=== PATIENT | male | born 1960 | race African-American/Black ===

== ENCOUNTER 2019-06-03 07:13 | Observation (INO) | payer MEDICARE ==
[2019-06-01 10:20] LABS: INR 0.9; PROTHROMBIN TIME 12.6 seconds (11.9-14.5)
[2019-06-01 10:21] LABS: PARTIAL THROMBOPLASTIN TIME 28.9 seconds (23.8-35.5)
[2019-06-01 10:25] LABS: ANION GAP 16.6 mmol/L (8-16); BLOOD UREA NITROGEN 14 mg/dL (7-26); BUN/CREATININE RATIO 13 (6-25); CALCIUM 9.5 mg/dL (8.4-10.2); CARBON DIOXIDE 25 mmol/L (22-29); CHLORIDE 103 mmol/L (98-107); CREATININE, SERUM 1.06 mg/dL (0.72-1.25); EST GLOMERULAR FILTRATION RATE > 60 ML/MIN (60-); GLUCOSE 94 mg/dL (74-118); POTASSIUM 3.6 mmol/L (3.5-5.1); SODIUM 141 mmol/L (136-145)
--- NOTE | 2019-06-01 10:28 | Diagnostic Imaging Report ---
EXAMINATION: CHEST 2 VIEWS INDICATION: Pre-operative COMPARISON: None FINDINGS: LINES/TUBES:None LUNGS:The lungs are well-inflated. No focal consolidation or pulmonary edema. Calcified granuloma at the right lower lung zone. PLEURA:No pleural effusion or pneumothorax. MEDIASTINUM:The cardiomediastinal silhouette appears normal in size and shape. BONES/SOFT TISSUES:No acute osseous injury. ABDOMEN:No free air under the diaphragm. IMPRESSION: No focal pneumonia or pulmonary edema. Signed by: Stephen Quintana MD on 06/01/2019 10:25 AM
[2019-06-01 11:05] LABS: BASOPHILS # (AUTO) 0.1 (0.0-0.1); BASOPHILS % 1.1 % (0.0-1.0); EOSINOPHILS # (AUTO) 0.2 (0.0-0.4); EOSINOPHILS % 3.5 % (0.0-6.0); HEMATOCRIT 41.7 % (38.2-49.6); LYMPHOCYTES # (AUTO) 1.8 (1.0-3.2); MEAN CORPUSCULAR HEMOGLOBIN 29.4 pg (28-32); MEAN CORPUSCULAR VOLUME 81.8 fL (81-99); MONOCYTES # (AUTO) 0.4 (0.2-0.8); MONOCYTES % 7.1 % (4.4-11.3); NEUTROPHILS # (AUTO) 3.1 (2.1-6.9); NEUTROPHILS % 55.6 % (38.7-80.0); PLATELET COUNT 233 x10e3/uL (140-360); RED CELL DISTRIBUTION WIDTH 13.6 % (11.7-14.4)
[~2019-06-03] VITALS: Ht 167.6 cm; Wt 76.8 kg
[2019-06-03] VITALS (7 sets, daily range): BP systolic 133–167; BP diastolic 78–100
[~2019-06-03 07:13] MED LIST: AMLODIPINE BESYL5 MG PO; BACITRACIN 50,000 UNIT VIAL ONE; BUPIVACAINE 0.5%/EPI 30 ML SDV INJ ONE; CRESTOR10 MG PO; THROMBIN FOR SOLN 5,000 UNIT VIAL ONE
[2019-06-03] MEDS ORDERED: ACETAMINOPHEN 1000 MG/100 ML 100 ML IV ONE (07:15)
[2019-06-03] MEDS ORDERED: IBUPROFEN 800MG/ 250ML 250 ML IV ONE (07:16)
[2019-06-03] MEDS ORDERED: LIDOCAINE HCL (LTA) 4 ML SOLN ONE (07:16)
--- OUTSIDE RECORDS SUMMARY | 2019-06-03 07:16 | XMS REPORT ---
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 Allergies, Adverse Reactions, Alerts This patient has no known allergies or adverse reactions. Medications This patient has no known medications. Results Test Description Test Time Test Comments Text Results Atomic Results Result Comments CHEST 2 VIEWS 2019-06-01 10:23:00 [place] [address] Patient Name: CECILIA JUAREZ MR #: [id number] : 1960 Age/Sex: 58/M Req #: [id number] Adm Physician: Ordered by: MARITZA ANDERSEN MD Report #: [id number] Location: OR Room/Bed: Procedure: [id number] DX/CHEST 2 VIEWS Exam Date: 06/01/19 Exam Time: 0949 REPORT STATUS: Signed EXAMINATION: CHEST 2 VIEWS INDICATION: Pre-operative COMPARISON: None FINDINGS: LINES/TUBES:None LUNGS:The lungs are well-inflated. No focal consolidation or pulmonary edema. Calcified granuloma at the right lower lung zone. PLEURA:No pleural effusion or pneumothorax. MEDIASTINUM:The cardiomediastinal silhouette appears normal in size and shape. BONES/SOFT TISSUES:No acute osseous injury. ABDOMEN:No free air under the diaphragm. IMPRESSION: No focal pneumonia or pulmonary edema. Signed by: Katey Quintana MD on 06/01/2019 10:25 AM Dictated By: KATEY QUINTANA MD 1025 Transcribed By: DREW on 06/01/19 1025 COPY TO: MARITZA ANDERSEN MD
--- OUTSIDE RECORDS SUMMARY | 2019-06-03 07:16 | XMS REPORT | Continuity of Care Document ---
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 YURI Don,[facility] Spinal stenosis of lumbar region2 Active 01/13/2013 Problem 05/20/2019 Data migrated from [employer] on 06/27/15. YURI Don,[facility] HTN (Confirmed) Active Problem 05/20/2019 YURI Don, [place],[facility] CVA Active [facility] Medications Medication Details Route Status Patient Instructions Ordering Provider Order Date Source Lipitor 40 mg, 1 tab, Route: PO, Drug form: TAB, Bedtime, Start date: 04/21/15 21:00:00, Duration: 30 day, Stop date: 05/20/15 21:00:00Notes: (Same as: Lipitor) Inactive 04/22/2015 [facility] atorvastatin 40 MG Oral Tablet [Lipitor] 40 mg=1 tab, PO, Bedtime, # 30 tab, 0 Refill(s) Active 04/21/2015 [facility] Aspirin 325 mg, PO, Daily, 0 Refill(s) Active 04/21/2015 [facility] Hydrochlorothiazide 12.5 MG / Losartan Potassium 50 MG Oral Tablet 1 tab, PO, Daily, # 30 tab, 0 Refill(s) Active 04/21/2015 [facility] pneumococcal capsular polysaccharide type 1 vaccine / pneumococcal capsular polysaccharide type 10A vaccine / pneumococcal capsular polysaccharide type 11A vaccine / pneumococcal capsular polysaccharide type 12F vaccine / pneumococcal capsular polysacchar 0.5 mL, Route: IM, Drug Form: INJ, Daily, Start date: 04/21/15 9:00:00, Duration: 1 doses or times, Stop date: 04/21/15 9:00:00Notes: (Same as: Pneumovax 23) Refrigerate Inactive 04/21/2015 [facility] Saline Flush 0.9% 10 ml, Route: IVP, Drug Form: INJ, Dosing Weight 75, kg, Q12H, Start date: 04/21/15 9:00:00, Duration: 30 day, Stop date: 05/20/15 21:00:00Notes: preservative free. Inactive 04/21/2015 [facility] Famotidine 20 mg, 1 tab, Route: PO, Drug form: TAB, Q12H, Dosing Weight 75, kg, Start date: 04/21/15 9:00:00, Duration: 30 day, Stop date: 05/20/15 21:00:00Notes: (Same as: Pepcid) Inactive 04/21/2015 [facility] Aspirin 325 mg, 1 tab, Route: PO, Drug form: TAB, Daily, Dosing Weight 75, kg, Start date: 04/21/15 9:00:00, Duration: 30 day, Stop date: 05/20/15 9:00:00Notes: Take with food. Inactive 04/21/2015 [facility] Losartan 5 mg, PO, Daily, 0 Refill(s) Inactive 04/21/2015 [facility] atorvastatin 40 mg, 1 tab, Route: PO, Drug form: TAB, Bedtime, Dosing Weight 75, kg, Start date: 04/21/15 1:29:00, Duration: 30 day, Stop date: 05/20/15 21:00:00Notes: (Same as: Lipitor) Inactive 04/21/2015 [facility] Tylenol 650 mg, 2 tab, Route: PO, Drug form: TAB, Q6H, Dosing Weight 75, kg, PRN Pain Score 1-3, Start date: 04/21/15 1:19:00, Duration: 30 day, Stop date: 05/21/15 1:18:00Notes: Do not exceed 4 gm/day. (Sa me as: Tylenol) Inactive 04/21/2015 [facility] Saline Flush 0.9% 10 ml, Route: IVP, Drug Form: INJ, Dosing Weight 75, kg, PRN, PRN Line Flush, Start date: 04/21/15 1:19:00, Duration: 30 day, Stop date: 05/21/15 1:18:00Notes: preservative free. Inactive 04/21/2015 [facility] Aspirin 325 mg, 1 tab, Route: PO, Drug form: TAB, ONCE, Dosing Weight 75, kg, Priority: STAT, Start date: 04/20/15 23:42:00, Stop date: 04/20/15 23:42:00Notes: Take with food. No Longer Active 04/21/2015 [facility] Saline Flush 0.9% 10 mL, Route: IVP, Drug Form: INJ, Dosing Weight 75, kg, PRN, PRN Line Flush, Start date: 04/20/15 22:29:00, Duration: 30 day, Stop date: 05/20/15 22:28:00Notes: preservative free. No Longer Active 04/21/2015 [facility] Allergies, Adverse Reactions, Alerts Substance Category Reaction Severity Reaction type Status Date Reported Comments Source No Known Medication Allergies Assertion Drug allergy YURI Don Immunizations Immunization Date Given Site Status Last Updated Comments Source pneumococcal 23-valent vaccine 04/21/2015 Left deltoid completed [facility] YURI Don, [facility], YURI Martinez Results Order Name Results Value Reference Range Date Interpretation Comments Source CHEM PANEL eGFR 78 04/21/2015 <sup>1</sup>Result Comment: The eGFR is calculated using the CKD-EPI formula. In most young, healthy individuals the eGFR will be >90 mL/min/1.73m2. The eGFR declines with age. An eGFR of 60-89 may be normal in some populations, particularly the elderly, for whom the CKD-EPI formula has not been extensively validated. Use of the eGFR is not recommended in the following populations:& lt;br/>
Individuals with unstable creatinine concentrations, including patients and those with serious co-morbid conditions.

Patients with extremes in muscle mass or diet.

The data above are obtained from the National Kidney Disease Education Program (NKDEP) which additionally recommends that when the eGFR is used in patients with extremes of body mass index for purposes of drug dosing, the eGFR should be multiplied by the estimated BMI. [facility] CHEM PANEL Glucose Lvl 105 70 - 99 04/21/2015 <sup>3</sup>Interpretive Data: Adult reference range values reflect the clinical guidelines
of the [place] [employer]. [facility] CHEM PANEL Creatinine Lvl 1.2 0.5 - 1.4 04/21/2015 [facility] CHEM PANEL BUN 11 7 - 22 04/21/2015 [facility] CHEM PANEL CO2 30 24 - 32 04/21/2015 [facility] CHEM PANEL AGAP 11.9 10.0 - 20.0 04/21/2015 [facility] CHEM PANEL Calcium Lvl 8.9 8.5 - 10.5 04/21/2015 [facility] CHEM PANEL Chloride Lvl 102 95 - 109 04/21/2015 [facility] CHEM PANEL Potassium Lvl 3.9 3.5 - 5.1 04/21/2015 [facility] CHEM PANEL Sodium Lvl 140 135 - 145 04/21/2015 [facility] LIPIDS LDL (Calculated) 79 <=99 mg/dL 04/21/2015 [facility] LIPIDS VLDL 56 04/21/2015 [facility] LIPIDS Trig 280 <=149 mg/dL 04/21/2015 [facility] LIPIDS HDL 61 >=61 mg/dL 04/21/2015 [facility] LIPIDS Chol 196 <=199 mg/dL 04/21/2015 [facility] LIPIDS CHD Risk 3.21 4.00 - 7.30 04/21/2015 [facility] URINE AND STOOL UA Urobilinogen <=1.0 mg/dL 0.1 - 1.0 04/21/2015 [facility] URINE AND STOOL UA Color Ltyellow 04/21/2015 [facility] URINE AND STOOL UA Ketones Negative mg/dL Negative mg/dL 04/21/2015 [facility] URINE AND STOOL UA Nitrite Negative (04/20/15 11:08 PM) Negative 04/21/2015 [facility] URINE AND STOOL UA Blood Negative (04/20/15 11:08 PM) Negative 04/21/2015 [facility] URINE AND STOOL UA Bili Negative *NA* (04/20/15 11:08 PM) Negative 04/21/2015 [facility] URINE AND STOOL UA Sq Epi Occasional /LPF Few /LPF 04/21/2015 [facility] URINE AND STOOL UA Leuk Est Negative (04/20/15 11:08 PM) Negative 04/21/2015 [facility] URINE AND STOOL UA RBC 1 0 - 2 04/21/2015 [facility] URINE AND STOOL UA WBC <1 0 - 5 04/21/2015 [facility] URINE AND STOOL UA Mucus Few /LPF None Seen /LPF 04/21/2015 [facility] URINE AND STOOL UA Bacteria Occasional /HPF None Seen /HPF 04/21/2015 [facility] URINE AND STOOL UA Turbidity Clear (04/20/15 11:08 PM) Clear 04/21/2015 [facility] URINE AND STOOL UA pH 6.0 5.0 - 8.0 04/21/2015 [facility] URINE AND STOOL UA Spec Grav 1.009 <=1.030 04/21/2015 [facility] URINE AND STOOL UA Glucose Negative mg/dL Negative mg/dL 04/21/2015 [facility] URINE AND STOOL UA Protein Negative mg/dL Negative mg/dL 04/21/2015 [facility] CARDIAC ENZYMES CK MB <0.5 0.5 - 3.6 04/21/2015 [facility] CARDIAC ENZYMES CK MB Index <0.3 0.0 - 2.5 04/21/2015 [facility] CARDIAC ENZYMES Total CK 144 12 - 191 04/21/2015 [facility] CARDIAC ENZYMES Troponin-I <0.02 0.00 - 0.40 04/21/2015 [facility] CHEM PANEL eGFR 110 04/21/2015 <sup>2</sup>Result Comment: The eGFR is calculated using the CKD-EPI formula. In most young, healthy individuals the eGFR will be >90 mL/min/1.73m2. The eGFR declines with age. An eGFR of 60-89 may be normal in some populations, particularly the elderly, for whom the CKD-EPI formula has not been extensively validated. Use of the eGFR is not recommended in the following populations:& lt;br/>
Individuals with unstable creatinine concentrations, including patients and those with serious co-morbid conditions.

Patients with extremes in muscle mass or diet.

The data above are obtained from the National Kidney Disease Education Program (NKDEP) which additionally recommends that when the eGFR is used in patients with extremes of body mass index for purposes of drug dosing, the eGFR should be multiplied by the estimated BMI. [facility] CHEM PANEL Globulin 3.7 2.0 - 4.0 04/21/2015 [facility] CHEM PANEL AST 17 0 - 37 04/21/2015 [facility] CHEM PANEL A/G Ratio 1.1 0.7 - 1.6 04/21/2015 [facility] CHEM PANEL Alk Phos 60 39 - 136 04/21/2015 [facility] CHEM PANEL AGAP 13.5 10.0 - 20.0 04/21/2015 [facility] CHEM PANEL Bili Total 1.1 0.2 - 1.3 04/21/2015 [facility] CHEM PANEL B/C Ratio 9 6 - 25 04/21/2015 [facility] CHEM PANEL Calcium Lvl 8.7 8.5 - 10.5 04/21/2015 [facility] CHEM PANEL Albumin Lvl 4.0 3.5 - 5.0 04/21/2015 [facility] CHEM PANEL Total Protein 7.7 6.4 - 8.4 04/21/2015 [facility] CHEM PANEL ALT 41 0 - 65 04/21/2015 [facility] CHEM PANEL CO2 27 24 - 32 04/21/2015 [facility] CHEM PANEL Creatinine Lvl 0.9 0.5 - 1.4 04/21/2015 [facility] CHEM PANEL BUN 8 7 - 22 04/21/2015 [facility] CHEM PANEL Glucose Lvl 82 70 - 99 04/21/2015 <sup>4</sup>Interpretive Data: Adult reference range values reflect the clinical guidelines
of the [place] [employer]. [facility] CHEM PANEL Sodium Lvl 137 135 - 145 04/21/2015 [facility] CHEM PANEL Potassium Lvl 3.5 3.5 - 5.1 04/21/2015 [facility] CHEM PANEL Chloride Lvl 100 95 - 109 04/21/2015 [facility] HEMATOLOGY PTT 20.8 22.9 - 35.8 04/21/2015 <sup>6</sup>Interpretive Data: Heparin Therapeutic Range: 57 - 92 Seconds [facility] HEMATOLOGY PT 13.4 12.0 - 14.7 04/21/2015 [facility] HEMATOLOGY INR 1.02 0.85 - 1.17 04/21/2015 <sup>5</sup>Interpretive Data: RECOMMENDED RANGES FOR PROTIME INR:
2.0-3.0 for most medical and surgical thromboembolic states.
2.5-3.5 for artificial heart valves and recurrent embolism.

INR SHOULD BE USED ONLY FOR PATIENTS ON STABLE ANTICOAGULANT THERAPY. [facility] HEMATOLOGY RBC 5.11 4.70 - 6.10 04/21/2015 [facility] WBC 6.9 3.7 - 10.4 04/21/2015 [facility] Hgb 15.5 14.0 - 18.0 04/21/2015 [facility] MCHC 35.5 32.0 - 36.0 04/21/2015 [facility] MCH 30.4 27.0 - 31.0 04/21/2015 [facility] MCV 85.6 80.0 - 94.0 04/21/2015 [facility] Hct 43.7 42.0 - 54.0 04/21/2015 [facility] MPV 10.2 7.4 - 10.4 04/21/2015 [facility] Platelet 216 133 - 450 04/21/2015 [facility] RDW 13.9 11.5 - 14.5 04/21/2015 [facility] Segs-Bands # 5.4 1.5 - 8.1 04/21/2015 [facility] Lymphocytes # 1.2 1.0 - 5.5 04/21/2015 [facility] Monocytes # 0.2 0.0 - 0.8 04/21/2015 [facility] Eosinophils 0.1 0.0 - 4.0 04/21/2015 [facility] Monocytes 3.1 2.0 - 12.0 04/21/2015 [facility] Lymphocytes 17.3 20.0 - 40.0 04/21/2015 [facility] Segs 79.2 45.0 - 75.0 04/21/2015 [facility] Basophils 0.3 0.0 - 1.0 04/21/2015 [facility] Pathology Reports No Data Provided for This Section Diagnostic Reports Report Value Date Source Spine cervical wo contrast MRI Spine cervical wo contrast MRI 05/18/2019 13:40 CDT CLINICAL: M54.2 Cervicalgia - M54.2 Cervicalgia TECHNIQUE: Multiplanar multisequence imaging of the cervical spine was performed without administration of intravenous gadolinium. COMPARISON: No prior exam. FINDINGS: Multilevel disc desiccation is seen. C1-C2: No spinal stenosis or neural foraminal stenosis. C2-C3: No central canal stenosis. Mild left foraminal stenosis due to left foraminal osteophytes. C3-C4: 2 mm central disc protrusion with annular fissure with contact with anterior cord margin. No central canal or foraminal stenosis. C4-C5: 4 mm central disc protrusion with mild cord indentation and mild central canal stenosis. Bilateral foraminal osteophytes are present with moderate bilateral foraminal stenosis. C5-C6: 4 mm right paracentral disc protrusion with mild central canal stenosis and cord indentation. Severe left foraminal stenosis and moderate right foraminal stenosis due to foraminal osteophytes. C6-C7: 2 mm broad-based central disc protrusion with mild central canal stenosis and moderate right foraminal stenosis due to foraminal osteophytes. C7-T1: Moderate bilateral facet arthrosis with moderate to severe bilateral foraminal stenosis. No central canal stenosis. The cervical cord signal is normal. IMPRESSION: 1. Multilevel disc protrusions with mild central canal stenosis and mild cord indentation. Normal cervical cord signal is maintained. 2. C4-C5 moderate bilateral foraminal stenosis, C5-C6 severe left foraminal stenosis and moderate right foraminal stenosis, C6-C7 moderate right foraminal stenosis, C7-T1 moderate to severe bilateral foraminal stenosis. 05/18/2019 YURI Don Brain wo contrast MRI Brain wo contrast MRI 05/18/2019 13:38 CDT Clinical Indication: R51 Headache - R51 Headache; Comparison: 04/21/2015 MRI TECHNIQUE: Multiplanar noncontrast MRI of the brain is performed. No intravenous gadolinium was given. FINDINGS: BRAIN: No restricted diffusion is identified. Stable minimal right frontal subcortical white matter foci of increased T2 and FLAIR signal. Normal brain volume is present. The brainstem is unremarkable. There is no extra-axial fluid collection or intraparenchymal hemorrhage. The cerebellar tonsils extend to the level of the foramen magnum. CEREBELLOPONTINE REGIONS, SELLA, AND SKULL: The cerebellopontine angles appear unremarkable. No skull abnormality is seen. Partially empty sella turcica configuration is present. VENTRICLES: The ventricles and sulci are normal in size and configuration for age. VISUALIZED VESSELS: Major intracranial flow voids are preserved. ORBITS, VISUALIZED PARANASAL SINUSES/MASTOIDS/CERVICAL SPINE: Paranasal sinuses are clear. The mastoid air cells are clear. No orbital pathology is seen. IMPRESSION: 1. No intracranial hemorrhage, mass, or acute infarct. 2. Age-appropriate right frontal white matter changes may represent minimal chronic microvascular ischemia versus sequela of migraine headache. 05/18/2019 YURI Don Scrotal/Testicle US EXAM: US SCROTUM WITH DOPPLER DATE: 05/17/2019 13:17 CDT INDICATION: - R10.30 Lower abdominal pain, unspecified COMPARISON: None. TECHNIQUE: Multiplanar grayscale, color Doppler and spectral Doppler ultrasound images of the scrotum and testes. FINDINGS: Right testicle: Size: 3.6 x 2.1 x 3 cm Echogenicity: Normal. Calcifications: None. Cysts: None. Masses: None. Doppler: Normal. Right epididymis: Size: 0.8 x 1.2 x 1.4 cm Echogenicity: Normal. Calcifications: None. Cysts: None. Masses: None. Doppler: Normal. Right hydrocele: Small Right varicocele: None. Right hernia: None. Left testicle: Size: 3.2 x 1.9 x 2.3 cm Echogenicity: Normal. Cysts: None. Masses: None. Doppler: Normal. Left epididymis: Size: 1 x 1 x 0.9 cm Echogenicity: Normal. Cysts: None. Masses: None. Doppler: Normal. Left hydrocele: None. Left varicocele: None. Left hernia: None. IMPRESSION: 1. No testicular mass. Bilateral symmetrical color Doppler flow and wave pattern in both testes. 2. Small right-sided hydrocele. 3. No inguinal hernia seen bilaterally. 05/17/2019 [facility] contrast MRA MRI BRAIN WITHOUT CONTRAST, MRA NECK AND [place] WITHOUT CONTRAST INDICATION: Dysarthria COMPARISON: CT brain 04/20/2015 DISCUSSION: BRAIN: The white matter is normal in signal. There is no evidence of acute ischemic insults, space occupying lesions, hemorrhage, hydrocephalus, midline shift or extra-axial collections. No cortical based, suprasellar, craniocervical, or bone marrow abnormalities are seen. MRA NECK: Measurement of internal carotid artery stenosis is performed according to NASCET criteria. There is typical configuration of the aortic arch. The bilateral common carotid arteries, bifurcations, and internal carotid arteries are patent. There is no measurable stenosis of the bilateral ICAs. The bilateral vertebral arteries are patent. MRA [place]: The bilateral internal carotid arteries are patent. The bilateral anterior and middle cerebral arteries are patent. The vertebrobasilar arteries and bilateral posterior cerebral arteries are patent. Normal variants: An anterior communicating artery is present. There is origin of the bilateral posterior cerebral arteries. The right vertebral artery is dominant. The left vertebral artery ends as the left PICA. No aneurysms or vascular malformations are visualized. IMPRESSION: Reporting of extracranial internal carotid artery stenosis is by NASCET criteria. 1. No intracranial abnormalities are visualized. 2. No hemodynamically significant stenosis of the neck. There is less than 50% stenosis of the bilateral extracranial ICAs. The vertebral arteries are patent. 3. Unremarkable MRA of the [place]. SL: 04/21/2015 [facility] contrast MRA MRI BRAIN WITHOUT CONTRAST, MRA NECK AND [place] WITHOUT CONTRAST INDICATION: Dysarthria COMPARISON: CT brain 04/20/2015 DISCUSSION: BRAIN: The white matter is normal in signal. There is no evidence of acute ischemic insults, space occupying lesions, hemorrhage, hydrocephalus, midline shift or extra-axial collections. No cortical based, suprasellar, craniocervical, or bone marrow abnormalities are seen. MRA NECK: Measurement of internal carotid artery stenosis is performed according to NASCET criteria. There is typical configuration of the aortic arch. The bilateral common carotid arteries, bifurcations, and internal carotid arteries are patent. There is no measurable stenosis of the bilateral ICAs. The bilateral vertebral arteries are patent. MRA [place]: The bilateral internal carotid arteries are patent. The bilateral anterior and middle cerebral arteries are patent. The vertebrobasilar arteries and bilateral posterior cerebral arteries are patent. Normal variants: An anterior communicating artery is present. There is origin of the bilateral posterior cerebral arteries. The right vertebral artery is dominant. The left vertebral artery ends as the left PICA. No aneurysms or vascular malformations are visualized. IMPRESSION: Reporting of extracranial internal carotid artery stenosis is by NASCET criteria. 1. No intracranial abnormalities are visualized. 2. No hemodynamically significant stenosis of the neck. There is less than 50% stenosis of the bilateral extracranial ICAs. The vertebral arteries are patent. 3. Unremarkable MRA of the [place]. SL: 04/21/2015 [facility] contrast MRI MRI BRAIN WITHOUT CONTRAST, MRA NECK AND [place] WITHOUT CONTRAST INDICATION: Dysarthria COMPARISON: CT brain 04/20/2015 DISCUSSION: BRAIN: The white matter is normal in signal. There is no evidence of acute ischemic insults, space occupying lesions, hemorrhage, hydrocephalus, midline shift or extra-axial collections. No cortical based, suprasellar, craniocervical, or bone marrow abnormalities are seen. MRA NECK: Measurement of internal carotid artery stenosis is performed according to NASCET criteria. There is typical configuration of the aortic arch. The bilateral common carotid arteries, bifurcations, and internal carotid arteries are patent. There is no measurable stenosis of the bilateral ICAs. The bilateral vertebral arteries are patent. MRA [place]: The bilateral internal carotid arteries are patent. The bilateral anterior and middle cerebral arteries are patent. The vertebrobasilar arteries and bilateral posterior cerebral arteries are patent. Normal variants: An anterior communicating artery is present. There is origin of the bilateral posterior cerebral arteries. The right vertebral artery is dominant. The left vertebral artery ends as the left PICA. No aneurysms or vascular malformations are visualized. IMPRESSION: Reporting of extracranial internal carotid artery stenosis is by NASCET criteria. 1. No intracranial abnormalities are visualized. 2. No hemodynamically significant stenosis of the neck. There is less than 50% stenosis of the bilateral extracranial ICAs. The vertebral arteries are patent. 3. Unremarkable MRA of the [place]. SL: 04/21/2015 [facility] Brain Stroke wo contrast CT EXAM: CT head HISTORY: Focal neurological deficit. COMPARISON: None. TECHNIQUE: Axial noncontrast CT images of the head FINDINGS: The brain parenchyma appears within normal limits for age. No edema, mass-effect or midline shift seen. Ventricles midline and normal size. No intra or extra axial hemorrhage. Visualized paranasal sinuses and mastoid air cells are clear. No depressed skull fracture seen. IMPRESSION: Negative CT head. SL: 04/20/2015 [facility] Chest 1view DX EXAMINATION: Chest 1view CLINICAL HISTORY: Focal neurological deficit COMPARISON: No prior similar examinations are currently available for comparison. The hypoinflated lungs are clear of consolidation, pleural effusion, and pneumothorax. The heart size is at the upper limits of normal. Mildly elevated right hemidiaphragm. Mild thoracic spondylosis. SL:17 04/20/2015 [facility] Consultation Notes No Data Provided for This Section Discharge Summaries No Data Provided for This Section History and Physicals No Data Provided for This Section Vital Signs Vital Sign Value Date Comments Source Respitory Rate 16 04/21/2015 [facility] Systolic (mm Hg) 135 04/21/2015 [facility] Diastolic (mm Hg) 97 04/21/2015 [facility] Heart Rate 63 04/21/2015 [facility] Temperature Oral (F) 98 F 04/21/2015 [facility] Respitory Rate 16 04/21/2015 [facility] Heart Rate 78 04/21/2015 [facility] Temperature Oral (F) 98.4 F 04/21/2015 [facility] Systolic (mm Hg) 127 04/21/2015 [facility] Diastolic (mm Hg) 86 04/21/2015 [facility] Temperature Oral (F) 98.1 F 04/21/2015 [facility] Systolic (mm Hg) 130 04/21/2015 [facility] Diastolic (mm Hg) 85 04/21/2015 [facility] Respitory Rate 16 04/21/2015 [facility] Heart Rate 72 04/21/2015 [facility] Height 170.18 cm 04/21/2015 [facility] BMI Calculated 25.9 04/21/2015 [facility] Weight 75 04/21/2015 [facility] Height 182.88 cm 04/21/2015 [facility] Weight 75 04/21/2015 [facility] BMI Calculated 22.42 04/21/2015 [facility] Encounters Location Location Details Encounter Type Encounter Number Reason For Visit Attending Provider ADM Date DC Date Status Source [facility] OBS Observation Patient [id number] Hao Beasley 04/21/2015 04/21/2015 [facility] [place] [facility] [id number] Jr Lawler 05/17/2019 05/18/2019 [facility] - [place] [facility] [id number] Jr Lawler 05/18/2019 05/19/2019 [facility] [place] Procedures No Data Provided for This Section Assessment and Plan No Data Provided for This Section Plan of Care No Data Provided for This Section Social History Social History Date Source Social History TypeResponse Alcohol Current, Type Beer. Frequency: Daily. Smoking Status Former smoker; Type: Cigarettes; Exposure to Tobacco Smoke None; Cigarette Smoking Last 365 Days No; Reg Smoking Cessation Counseling Yes; Stopped at age: 47; Other Tobacco Frequency pt dips; entered on: 04/21/15 04/21/2015 [facility] Social History TypeResponse Alcohol Current, Type Beer. Frequency: Daily. Smoking Status Former smoker; Type: Cigarettes; Exposure to Tobacco Smoke None; Cigarette Smoking Last 365 Days No; Reg Smoking Cessation Counseling Yes; Stopped at age: 47; Other Tobacco Frequency pt dips; entered on: 04/21/15 04/21/2015 [facility] Social History TypeResponse Alcohol Current, Type Beer. Frequency: Daily. Smoking Status Former smoker; Type: Cigarettes; Stopped at age: 47; Exposure to Tobacco Smoke None; Other Tobacco Frequency pt dips; Cigarette Smoking Last 365 Days No; Reg Smoking Cessation Counseling Yes 04/21/2015 [facility] Family History No Data Provided for This Section Advance Directives No Data Provided for This Section Functional Status No Data Provided for This Section
--- OUTSIDE RECORDS SUMMARY | 2019-06-03 07:16 | XMS REPORT | Summary of Care ---
Author Author [facility] Outpatient Imaging [facility] Outpatient Imaging [facility] Address Unknown Phone Unavailable Encounter CA Wade([place]) [id number] Date(s): 05/17/19 - 05/17/19 [facility] Outpatient Imaging [facility] [address] [facility], [address] [place] [phone] Discharge Disposition: Home or Self Care Attending Physician: Jr Lawler MD Referring Physician: Jr Lawler MD Vital Signs No data available for this section Problem List Condition Effective Dates Status Health Status Informant HTN Active (hypertension)(Confi rmed) Lumbar 01/13/13 Active radiculopathy1 Spinal stenosis of 01/13/13 Active lumbar region2 1Data migrated from [employer] on 06/27/15. 2Data migrated from [employer] on 06/27/15. Allergies, Adverse Reactions, Alerts No Known Medication Allergies Medications No data available for this section Results No data available for this section Immunizations Given and Recorded Vaccine Date Status Refusal Reason pneumococcal 23-valent vaccine 04/21/15 Given Procedures No data available for this section Social History Social History Type Response Alcohol Current, Type Beer. Frequency: Daily. Smoking Status Former smoker; Type: Cigarettes; Exposure to Tobacco Smoke None; Cigarette Smoking Last 365 Days No; Reg Smoking Cessation Counseling Yes; Stopped at age: 47; Other Tobacco Frequency pt dips; entered on: 04/21/15 Assessment and Plan No data available for this section
--- OUTSIDE RECORDS SUMMARY | 2019-06-03 07:16 | XMS REPORT | Summary of Care ---
Author Author [facility] [place] Organization [facility] [place] Address Unknown Phone Unavailable Encounter CA Wade([place]) [id number] Date(s): 05/18/19 - 05/18/19 [facility] [place] [address] [place] [phone] Discharge Disposition: Home or Self Care Attending Physician: Jr Lawler MD Referring Physician: Jr Lawler MD Vital Signs No data available for this section Problem List Condition Effective Dates Status Health Status Informant HTN Active (hypertension)(Confi rmed) Lumbar 01/13/13 Active radiculopathy1 Spinal stenosis of 01/13/13 Active lumbar region2 1Data migrated from [employer] on 06/27/15. 2Data migrated from [employer] on 06/27/15. Allergies, Adverse Reactions, Alerts No [...]
--- OUTSIDE RECORDS SUMMARY | 2019-06-03 07:16 | XMS REPORT | Summary of Care ---
Author Organization Unknown Address Unknown Phone Unavailable Encounter [facility] Sehri([place]) [id number] Date(s): 04/20/15 - 04/21/15 [facility] [address] [place] [address]- [phone] Discharge Disposition: Home Physician Attending: Hao Beasley MD Physician Admitting: Hao Beasley MD Vital Signs 1 2 3 Most recent to oldest [Reference Range]: 170.18 cm (04/21/15 1:30 AM) 182.88 cm (04/20/15 9:21 PM) Height 98 DegF (04/21/15 4:00 PM) 98.4 DegF (04/21/15 12:00 PM) 98.1 DegF (04/21/15 8:00 AM) Temperature Oral [96.4-99.1 DegF] 135/97 mmHg (04/21/15 4:00 PM) 127/86 mmHg (04/21/15 12:00 PM) 130/85 mmHg (04/21/15 8:00 AM) Blood Pressure [90-140/60-90 mmHg] 16 BRMIN (04/21/15 4:00 PM) 16 BRMIN (04/21/15 12:00 PM) 16 BRMIN (04/21/15 8:00 AM) Respiratory Rate [14-20 BRMIN] 63 bpm (04/21/15 4:00 PM) 78 bpm (04/21/15 12:00 PM) 72 bpm (04/21/15 8:00 AM) Peripheral Pulse Rate [60-100 bpm] 75 kg (04/21/15 1:30 AM) 75 kg (04/20/15 9:21 PM) Weight 25.9 m2 (04/21/15 1:30 AM) 22.42 m2 (04/20/15 9:21 PM) Body Mass Index Problem List Condition Effective Dates Status Health Status Informant HTN Active (hypertension)(Confi rmed) Allergies, Adverse Reactions, Alerts Substance Reaction Severity Status NKDA Active Medications aspirin 325 mg, PO, Daily, 0 Refill(s) Start Date: 04/21/15 Status: Ordered aspirin 325 mg, 1 tab, Route: PO, Drug form: TAB, ONCE, Dosing Weight 75, kg, Priority: STAT, Start date: 04/20/15 23:42:00, Stop date: 04/20/15 23:42:00 Notes: Take with food. Start Date: 04/20/15 Stop Date: 04/21/15 Status: Completed aspirin 325 mg, 1 tab, Route: PO, Drug form: TAB, Daily, Dosing Weight 75, kg, Start luciana e: 04/21/15 9:00:00, Duration: 30 day, Stop date: 05/20/15 9:00:00 Notes: Take with food. Start Date: 04/21/15 Stop Date: 04/21/15 Status: Discontinued atorvastatin 40 mg, 1 tab, Route: PO, Drug form: TAB, Bedtime, Dosing Weight 75, kg, Start da te: 04/21/15 1:29:00, Duration: 30 day, Stop date: 05/20/15 21:00:00 Notes: (Same as: Lipitor) Start Date: 04/21/15 Stop Date: 04/21/15 Status: Discontinued famotidine 20 mg, 1 tab, Route: PO, Drug form: TAB, Q12H, Dosing Weight 75, kg, Start date: 04/21/15 9:00:00, Duration: 30 day, Stop date: 05/20/15 21:00:00 Notes: (Same as: Pepcid) Start Date: 04/21/15 Stop Date: 04/21/15 Status: Discontinued hydrochlorothiazide-losartan 12.5 mg-50 mg oral tablet 1 tab, PO, Daily, # 30 tab, 0 Refill(s) Start Date: 04/21/15 Status: Ordered Lipitor 40 mg, 1 tab, Route: PO, Drug form: TAB, Bedtime, Start date: 04/21/15 21:00:00, Duration: 30 day, Stop date: 05/20/15 21:00:00 Notes: (Same as: Lipitor) Start Date: 04/21/15 Stop Date: 04/21/15 Status: Canceled Lipitor 40 mg oral tablet 40 mg=1 tab, PO, Bedtime, # 30 tab, 0 Refill(s) Start Date: 04/21/15 Status: Ordered losartan 5 mg, PO, Daily, 0 Refill(s) Start Date: 04/21/15 Stop Date: 04/21/15 Status: Discontinued pneumococcal 23-valent vaccine 0.5 mL, Route: IM, Drug Form: INJ, Daily, Start date: 04/21/15 9:00:00, Duration : 1 doses or times, Stop date: 04/21/15 9:00:00 Notes: (Same as: Pneumovax 23) Refrigerate Start Date: 04/21/15 Stop Date: 04/21/15 Status: Completed Saline Flush 0.9% 10 ml, Route: IVP, Drug Form: INJ, Dosing Weight 75, kg, PRN, PRN Line Flush, St art date: 04/21/15 1:19:00, Duration: 30 day, Stop date: 05/21/15 1:18:00 Notes: preservative free. Start Date: 04/21/15 Stop Date: 04/21/15 Status: Discontinued Saline Flush 0.9% 10 ml, Route: IVP, Drug Form: INJ, Dosing Weight 75, kg, Q12H, Start date: 04/21 9:00:00, Duration: 30 day, Stop date: 05/20/15 21:00:00 Notes: preservative free. Start Date: 04/21/15 Stop Date: 04/21/15 Status: Discontinued Saline Flush 0.9% 10 mL, Route: IVP, Drug Form: INJ, Dosing Weight 75, kg, PRN, PRN Line Flush, St art date: 04/20/15 22:29:00, Duration: 30 day, Stop date: 05/20/15 22:28:00 Notes: preservative free. Start Date: 04/20/15 Stop Date: 04/21/15 Status: Discontinued Tylenol 650 mg, 2 tab, Route: PO, Drug form: TAB, Q6H, Dosing Weight 75, kg, PRN Pain Sc ore 1-3, Start date: 04/21/15 1:19:00, Duration: 30 day, Stop date: 05/21/15 1:1 8:00 Notes: Do not exceed 4 gm/day. (Same as: Tylenol) Start Date: 04/21/15 Stop Date: 04/21/15 Status: Discontinued Results ELECTROLYTES Most recent to 1 2 oldest [Reference Range]: Sodium Lvl [135-145 140 mEq/L 137 mEq/L mEq/L] (04/21/15 5:38 AM) (04/20/15 10:24 PM) Potassium Lvl 3.9 mEq/L 3.5 mEq/L [3.5-5.1 mEq/L] (04/21/15 5:38 AM) (04/20/15 10:24 PM) Chloride Lvl [95-109 102 mEq/L 100 mEq/L mEq/L] (04/21/15 5:38 AM) (04/20/15 10:24 PM) CO2 [24-32 mEq/L] 30 mEq/L 27 mEq/L (04/21/15 5:38 AM) (04/20/15 10:24 PM) AGAP [10.0-20.0 11.9 mEq/L 13.5 mEq/L mEq/L] (04/21/15 5:38 AM) (04/20/15 10:24 PM) CHEM PANEL Most recent to 1 2 oldest [Reference Range]: Creatinine Lvl 1.2 mg/dL 0.9 mg/dL [0.5-1.4 mg/dL] (04/21/15 5:38 AM) (04/20/15 10:24 PM) eGFR 78 mL/min/1.73m2 1 110 mL/min/1.73m2 2 *NA* *NA* (04/21/15 5:38 AM) (04/20/15 10:24 PM) BUN [7-22 mg/dL] 11 mg/dL 8 mg/dL (04/21/15 5:38 AM) (04/20/15 10:24 PM) B/C Ratio [6-25] 9 (04/20/15 10:24 PM) Glucose Lvl [70-99 105 mg/dL 3 82 mg/dL 4 mg/dL] *HI* (04/20/15 10:24 PM) (04/21/15 5:38 AM) Total Protein 7.7 g/dL [6.4-8.4 g/dL] (04/20/15 10:24 PM) Albumin Lvl [3.5-5.0 4.0 g/dL g/dL] (04/20/15 10:24 PM) Globulin [2.0-4.0 3.7 g/dL g/dL] (04/20/15 10:24 PM) A/G Ratio [0.7-1.6] 1.1 (04/20/15 10:24 PM) Calcium Lvl 8.9 mg/dL 8.7 mg/dL [8.5-10.5 mg/dL] (04/21/15 5:38 AM) (04/20/15 10:24 PM) ALT [0-65 unit/L] 41 unit/L (04/20/15 10:24 PM) AST [0-37 unit/L] 17 unit/L (04/20/15 10:24 PM) Alk Phos [39-136 60 unit/L unit/L] (04/20/15 10:24 PM) Bili Total [0.2-1.3 1.1 mg/dL mg/dL] (04/20/15 10:24 PM) 1Result Comment: The eGFR is calculated using the CKD-EPI formula. In most young, healthy individuals the eGFR will be >90 mL/min/1.73m2. The eGFR declines with age. An eGFR of 60-89 may be normal in some populations, particularly the elderly, for whom the CKD-EPI formula has not been extensively validated. Use of the eGFR is not recommended in the following populations: Individuals with unstable creatinine concentrations, including patients and those with serious co-morbid conditions. Patients with extremes in muscle mass or diet. The data above are obtained from the National Kidney Disease Education Program ( NKDEP) which additionally recommends that when the eGFR is used in patients with extremes of body mass index for purposes of drug dosing, the eGFR should be mul tiplied by the estimated BMI. 2Result Comment: The eGFR is calculated using the CKD-EPI formula. In most young, healthy individuals the eGFR will be >90 mL/min/1.73m2. The eGFR declines with age. An eGFR of 60-89 may be normal in some populations, particularly the elderly, for whom the CKD-EPI formula has not been extensively validated. Use of the eGFR is not recommended in the following populations: Individuals with unstable creatinine concentrations, including patients and those with serious co-morbid conditions. Patients with extremes in muscle mass or diet. The data above are obtained from the National Kidney Disease Education Program ( NKDEP) which additionally recommends that when the eGFR is used in patients with extremes of body mass index for purposes of drug dosing, the eGFR should be mul tiplied by the estimated BMI. 3Interpretive Data: Adult reference range values reflect the clinical guidelines of the [place] [employer]. 4Interpretive Data: Adult reference range values reflect the clinical guidelines of the [place] [employer]. CARDIAC ENZYMES Most recent to 1 2 oldest [Reference Range]: Total CK [12-191 144 unit/L unit/L] (04/20/15 10:24 PM) CK MB [0.5-3.6 <0.5 ng/mL ng/mL] (04/20/15 10:24 PM) CK MB Index <0.3 [0.0-2.5] (04/20/15 10:24 PM) Troponin-I <0.02 ng/mL [0.00-0.40 ng/mL] (04/20/15 10:24 PM) LIPIDS Most recent to 1 2 oldest [Reference Range]: CHD Risk [4.00-7.30] 3.21 *LOW* (04/21/15 5:38 AM) Chol [<=199 mg/dL] 196 mg/dL (04/21/15 5:38 AM) Trig [<=149 mg/dL] 280 mg/dL *HI* (04/21/15 5:38 AM) HDL [>=61 mg/dL] 61 mg/dL (04/21/15 5:38 AM) LDL (Calculated) 79 mg/dL [<=99 mg/dL] (04/21/15 5:38 AM) VLDL 56 *NA* (04/21/15 5:38 AM) URINE AND STOOL Most recent to 1 2 oldest [Reference Range]: UA Turbidity [Clear] Clear (04/20/15 11:08 PM) UA Color Ltyellow *NA* (04/20/15 11:08 PM) UA pH [5.0-8.0] 6.0 (04/20/15 11:08 PM) UA Spec Grav 1.009 [<=1.030] (04/20/15 11:08 PM) UA Glucose [Negative Negative mg/dL mg/dL] *NA* (04/20/15 11:08 PM) UA Blood [Negative] Negative (04/20/15 11:08 PM) UA Ketones [Negative Negative mg/dL mg/dL] *NA* (04/20/15 11:08 PM) UA Protein [Negative Negative mg/dL mg/dL] (04/20/15 11:08 PM) UA Urobilinogen <=1.0 mg/dL [0.1-1.0 mg/dL] *NA* (04/20/15 11:08 PM) UA Bili [Negative] Negative *NA* (04/20/15 11:08 PM) UA Leuk Est Negative [Negative] (04/20/15 11:08 PM) UA Nitrite Negative [Negative] (04/20/15 11:08 PM) UA WBC [0-5 /HPF] <1 /HPF (04/20/15 11:08 PM) UA RBC [0-2 /HPF] 1 /HPF (04/20/15 11:08 PM) UA Bacteria [None Occasional /HPF Seen /HPF] *NA* (04/20/15 11:08 PM) UA Sq Epi [Few /LPF] Occasional /LPF *NA* (04/20/15 11:08 PM) UA Mucus [None Seen Few /LPF /LPF] *NA* (04/20/15 11:08 PM) HEMATOLOGY Most recent to 1 2 oldest [Reference Range]: WBC [3.7-10.4 K/CMM] 6.9 K/CMM (04/20/15 10:24 PM) RBC [4.70-6.10 5.11 M/CMM M/CMM] (04/20/15 10:24 PM) Hgb [14.0-18.0 g/dL] 15.5 g/dL (04/20/15 10:24 PM) Hct [42.0-54.0 %] 43.7 % (04/20/15 10:24 PM) MCV [80.0-94.0 fL] 85.6 fL (04/20/15 10:24 PM) MCH [27.0-31.0 pg] 30.4 pg (04/20/15 10:24 PM) MCHC [32.0-36.0 35.5 g/dL g/dL] (04/20/15 10:24 PM) RDW [11.5-14.5 %] 13.9 % (04/20/15 10:24 PM) Platelet [133-450 216 K/CMM K/CMM] (04/20/15 10:24 PM) MPV [7.4-10.4 fL] 10.2 fL (04/20/15 10:24 PM) Segs [45.0-75.0 %] 79.2 % *HI* (04/20/15 10:24 PM) Lymphocytes 17.3 % [20.0-40.0 %] *LOW* (04/20/15 10:24 PM) Monocytes [2.0-12.0 3.1 % %] (04/20/15 10:24 PM) Eosinophils [0.0-4.0 0.1 % %] (04/20/15 10:24 PM) Basophils [0.0-1.0 0.3 % %] (04/20/15 10:24 PM) Segs-Bands # 5.4 K/CMM [1.5-8.1 K/CMM] (04/20/15 10:24 PM) Lymphocytes # 1.2 K/CMM [1.0-5.5 K/CMM] (04/20/15 10:24 PM) Monocytes # [0.0-0.8 0.2 K/CMM K/CMM] (04/20/15 10:24 PM) PT [12.0-14.7 13.4 seconds seconds] (04/20/15 10:24 PM) INR [0.85-1.17] 1.02 5 (04/20/15 10:24 PM) PTT [22.9-35.8 20.8 seconds 6 seconds] *LOW* (04/20/15 10:24 PM) 5Interpretive Data: RECOMMENDED RANGES FOR PROTIME INR: 2.0-3.0 for most medical and surgical thromboembolic states. 2.5-3.5 for artificial heart valves and recurrent embolism. INR SHOULD BE USED ONLY FOR PATIENTS ON STABLE ANTICOAGULANT THERAPY. 6Interpretive Data: Heparin Therapeutic Range: 57 - 92 Seconds Immunizations Vaccine Date Refusal Reason pneumococcal 23-valent vaccine 04/21/15 Procedures No data available for this section Social History Social History Type Response Alcohol Current, Type Beer. Frequency: Daily. Smoking Status Former smoker; Type: Cigarettes; Stopped at age: 47; Exposure to Tobacco Smoke None; Other Tobacco Frequency pt dips; Cigarette Smoking Last 365 Days No; Reg Smoking Cessation Counseling Yes Assessment and Plan No data available for this section
[2019-06-03] MEDS ORDERED: CEFAZOLIN SOD 1 GM/NS 50ML 50 ML IV ONE (07:27)
[2019-06-03] MEDS ORDERED: LABETALOL HCL 20 ML ONE (08:17)
[2019-06-03] MEDS ORDERED: ONDANSETRON HCL INJ 2MG/ML 2ML 2 MG/ML VIAL IV PRN (10:45)
[2019-06-03] MEDS ORDERED: HYDROMORPHONE 2MG/ML 2 MG/ML ML IV PRN (10:45)
[2019-06-03] MEDS ORDERED: CEPACOL SORE THROAT LOZENGES PO PRN (10:45)
[2019-06-03] MEDS ORDERED: ACETAMINOPHEN 325 MG TAB PO PRN (10:45)
[2019-06-03] MEDS ORDERED: MORPHINE SULFATE 5 MG/ML VIAL IM PRN (10:45)
[2019-06-03] MEDS ORDERED: MAGNESIUM/ALUMINUM/SIMETHICONE 30 ML UDC PO PRN (10:45)
[2019-06-03] MEDS ORDERED: PROMETHAZINE HCL (IM) 25 MG/ML VIAL IM PRN (10:45)
[2019-06-03] MEDS ORDERED: ZOLPIDEM TARTRATE 5 MG TAB PO PRN (10:45)
[2019-06-03] MEDS ORDERED: OXYCODONE/ACETAMINOPHEN 5-325 1 EACH TABLET PO PRN (10:45)
[2019-06-03] MEDS ORDERED: CARISOPRODOL 350 MG TAB PO PRN (10:45)
--- OUTSIDE RECORDS SUMMARY | 2019-06-03 10:54 | XMS REPORT | Continuity of Care Document ---
Author Author [employer] Organization [employer] Address Unknown Phone Unavailable Care Team Providers Care Caustic Mixer Name Role Phone Single [employer] Information Exchange Unavailable Unavailable Problems Problem Status Onset Date Classification Date Reported Comments Source R10.30 - LOWER ABDOMINAL PAIN, UNSPECIF Active 05/14/2019 [facility] CVA, TIA Active 04/20/2015 [facility] POSSIBLE STROKE Active 04/20/2015 [facility] Lumbar radiculopathy1 Active 01/13/2013 Problem 05/20/2019 Data migrated from [employer] on 06/27/15. YURI Don,[facility] Spinal stenosis of lumbar region2 Active 01/13/2013 Problem 05/20/2019 Data migrated from [employer] on 06/27/15. YURI Don,[facility] HTN (Confirmed) Active Problem 05/20/2019 YURI Don, [place],[facility] CVA Active [facility] Medications Medication Details Route Status Patient Instructions Ordering Provider Order Date Source Lipitor 40 mg, 1 tab, Route: PO, Drug form: TAB, Bedtime, Start date: 04/21/15 21:00:00, Duration: 30 day, Stop date: 05/20/15 21:00:00Notes: (Same as: Lipitor) Inactive 04/22/2015 [facility] atorvastatin 40 MG Oral Tablet [Lipitor] 40 mg=1 tab, PO, Bedtime, # 30 tab, 0 Refill(s) Active 04/21/2015 [facility] Aspirin 325 mg, PO, Daily, 0 Refill(s) Active 04/21/2015 [facility] Hydrochlorothiazide 12.5 MG / Losartan Potassium 50 MG Oral Tablet 1 tab, PO, Daily, # 30 tab, 0 Refill(s) Active 04/21/2015 [facility] pneumococcal capsular polysaccharide type 1 vaccine / pneumococcal capsular polysaccharide type 10A vaccine / pneumococcal capsular polysaccharide type 11A vaccine / pneumococcal capsular polysaccharide type 12F vaccine / pneumococcal capsular polysacchar 0.5 mL, Route: IM, Drug Form: INJ, Daily, Start date: 04/21/15 9:00:00, Duration: 1 doses or times, Stop date: 04/21/15 9:00:00Notes: (Same as: Pneumovax 23) Refrigerate Inactive 04/21/2015 [facility] Saline Flush 0.9% 10 ml, Route: IVP, Drug Form: INJ, Dosing Weight 75, kg, Q12H, Start date: 04/21/15 9:00:00, Duration: 30 day, Stop date: 05/20/15 21:00:00Notes: preservative free. Inactive 04/21/2015 [facility] Famotidine 20 mg, 1 tab, Route: PO, Drug form: TAB, Q12H, Dosing Weight 75, kg, Start date: 04/21/15 9:00:00, Duration: 30 day, Stop date: 05/20/15 21:00:00Notes: (Same as: Pepcid) Inactive 04/21/2015 [facility] Aspirin 325 mg, 1 tab, Route: PO, Drug form: TAB, Daily, Dosing Weight 75, kg, Start date: 04/21/15 9:00:00, Duration: 30 day, Stop date: 05/20/15 9:00:00Notes: Take with food. Inactive 04/21/2015 [facility] Losartan 5 mg, PO, Daily, 0 Refill(s) Inactive 04/21/2015 [facility] atorvastatin 40 mg, 1 tab, Route: PO, Drug form: TAB, Bedtime, Dosing Weight 75, kg, Start date: 04/21/15 1:29:00, Duration: 30 day, Stop date: 05/20/15 21:00:00Notes: (Same as: Lipitor) Inactive 04/21/2015 [facility] Tylenol 650 mg, 2 tab, Route: PO, Drug form: TAB, Q6H, Dosing Weight 75, kg, PRN Pain Score 1-3, Start date: 04/21/15 1:19:00, Duration: 30 day, Stop date: 05/21/15 1:18:00Notes: Do not exceed 4 gm/day. (Sa me as: Tylenol) Inactive 04/21/2015 [facility] Saline Flush 0.9% 10 ml, Route: [...] should be multiplied by the estimated BMI. [facility] CHEM PANEL Glucose Lvl 105 70 - 99 04/21/2015 <sup>3</sup>Interpretive Data: Adult reference range values reflect the clinical guidelines
of the [place] [employer]. [facility] CHEM PANEL Creatinine Lvl 1.2 0.5 - 1.4 04/21/2015 [facility] CHEM PANEL BUN 11 7 - 22 04/21/2015 [facility] CHEM PANEL CO2 30 24 - 32 04/21/2015 [facility] CHEM PANEL AGAP 11.9 10.0 - 20.0 04/21/2015 [facility] CHEM PANEL Calcium Lvl 8.9 8.5 - 10.5 04/21/2015 [facility] CHEM PANEL Chloride Lvl 102 95 - 109 04/21/2015 [facility] CHEM PANEL Potassium Lvl 3.9 3.5 - 5.1 04/21/2015 [facility] CHEM PANEL Sodium Lvl 140 135 - 145 04/21/2015 [facility] LIPIDS LDL (Calculated) 79 <=99 mg/dL 04/21/2015 [facility] LIPIDS VLDL 56 04/21/2015 [facility] LIPIDS Trig 280 <=149 mg/dL 04/21/2015 [facility] LIPIDS HDL 61 >=61 mg/dL 04/21/2015 [facility] LIPIDS Chol 196 <=199 mg/dL 04/21/2015 [facility] LIPIDS CHD Risk 3.21 4.00 - 7.30 04/21/2015 [facility] URINE AND STOOL UA Urobilinogen <=1.0 mg/dL 0.1 - 1.0 04/21/2015 [facility] URINE AND STOOL UA Color Ltyellow 04/21/2015 [facility] URINE AND STOOL UA Ketones Negative mg/dL Negative mg/dL 04/21/2015 [facility] URINE AND STOOL UA Nitrite Negative (04/20/15 11:08 PM) Negative 04/21/2015 [facility] URINE AND STOOL UA Blood Negative (04/20/15 11:08 PM) Negative 04/21/2015 [facility] URINE AND STOOL UA Bili Negative *NA* (04/20/15 11:08 PM) Negative 04/21/2015 [facility] URINE AND STOOL UA Sq Epi Occasional /LPF Few /LPF 04/21/2015 [facility] URINE AND STOOL UA Leuk Est Negative (04/20/15 11:08 PM) Negative 04/21/2015 [facility] URINE AND STOOL UA RBC 1 0 - 2 04/21/2015 [facility] URINE AND STOOL UA WBC <1 0 - 5 04/21/2015 [facility] URINE AND STOOL UA Mucus Few /LPF None Seen /LPF 04/21/2015 [facility] URINE AND STOOL UA Bacteria Occasional /HPF None Seen /HPF 04/21/2015 [facility] URINE AND STOOL UA Turbidity Clear (04/20/15 11:08 PM) Clear 04/21/2015 [facility] URINE AND STOOL UA pH 6.0 5.0 - 8.0 04/21/2015 [facility] URINE AND STOOL UA Spec Grav 1.009 <=1.030 04/21/2015 [facility] URINE AND STOOL UA Glucose Negative mg/dL Negative mg/dL 04/21/2015 [facility] URINE AND STOOL UA Protein Negative mg/dL Negative mg/dL 04/21/2015 [facility] CARDIAC ENZYMES CK MB <0.5 0.5 - 3.6 04/21/2015 [facility] CARDIAC ENZYMES CK MB Index <0.3 0.0 - 2.5 04/21/2015 [facility] CARDIAC ENZYMES Total CK 144 12 - 191 04/21/2015 [facility] CARDIAC ENZYMES Troponin-I <0.02 0.00 - 0.40 04/21/2015 [facility] CHEM PANEL eGFR 110 04/21/2015 <sup>2</sup>Result [...] should be multiplied by the estimated BMI. [facility] CHEM PANEL Globulin 3.7 2.0 - 4.0 04/21/2015 [facility] CHEM PANEL AST 17 0 - 37 04/21/2015 [facility] CHEM PANEL A/G Ratio 1.1 0.7 - 1.6 04/21/2015 [facility] CHEM PANEL Alk Phos 60 39 - 136 04/21/2015 [facility] CHEM PANEL AGAP 13.5 10.0 - 20.0 04/21/2015 [facility] CHEM PANEL Bili Total 1.1 0.2 - 1.3 04/21/2015 [facility] CHEM PANEL B/C Ratio 9 6 - 25 04/21/2015 [facility] CHEM PANEL Calcium Lvl 8.7 8.5 - 10.5 04/21/2015 [facility] CHEM PANEL Albumin Lvl 4.0 3.5 - 5.0 04/21/2015 [facility] CHEM PANEL Total Protein 7.7 6.4 - 8.4 04/21/2015 [facility] CHEM PANEL ALT 41 0 - 65 04/21/2015 [facility] CHEM PANEL CO2 27 24 - 32 04/21/2015 [facility] CHEM PANEL Creatinine Lvl 0.9 0.5 - 1.4 04/21/2015 [facility] CHEM PANEL BUN 8 7 - 22 04/21/2015 [facility] CHEM PANEL Glucose Lvl 82 70 - 99 04/21/2015 <sup>4</sup>Interpretive Data: Adult reference range values reflect the clinical guidelines
of the [place] [employer]. [facility] CHEM PANEL Sodium Lvl 137 135 - 145 04/21/2015 [facility] CHEM PANEL Potassium Lvl 3.5 3.5 - 5.1 04/21/2015 [facility] CHEM PANEL Chloride Lvl 100 95 - 109 04/21/2015 [facility] HEMATOLOGY PTT 20.8 22.9 - 35.8 04/21/2015 <sup>6</sup>Interpretive Data: Heparin Therapeutic Range: 57 - 92 Seconds [facility] HEMATOLOGY PT 13.4 12.0 - 14.7 04/21/2015 [facility] HEMATOLOGY INR 1.02 0.85 - 1.17 04/21/2015 <sup>5</sup>Interpretive Data: RECOMMENDED RANGES FOR PROTIME INR:
2.0-3.0 for most medical and surgical thromboembolic states.
2.5-3.5 for artificial heart valves and recurrent embolism.

INR SHOULD BE USED ONLY FOR PATIENTS ON STABLE ANTICOAGULANT THERAPY. [facility] HEMATOLOGY RBC 5.11 4.70 - 6.10 04/21/2015 [facility] WBC 6.9 3.7 - 10.4 04/21/2015 [facility] Hgb 15.5 14.0 - 18.0 04/21/2015 [facility] MCHC 35.5 32.0 - 36.0 04/21/2015 [facility] MCH 30.4 27.0 - 31.0 04/21/2015 [facility] MCV 85.6 80.0 - 94.0 04/21/2015 [facility] Hct 43.7 42.0 - 54.0 04/21/2015 [facility] MPV 10.2 7.4 - 10.4 04/21/2015 [facility] Platelet 216 133 - 450 04/21/2015 [facility] RDW 13.9 11.5 - 14.5 04/21/2015 [facility] Segs-Bands # 5.4 1.5 - 8.1 04/21/2015 [facility] Lymphocytes # 1.2 1.0 - 5.5 04/21/2015 [facility] Monocytes # 0.2 0.0 - 0.8 04/21/2015 [facility] Eosinophils 0.1 0.0 - 4.0 04/21/2015 [facility] Monocytes 3.1 2.0 - 12.0 04/21/2015 [facility] Lymphocytes 17.3 20.0 - 40.0 04/21/2015 [facility] Segs 79.2 45.0 - 75.0 04/21/2015 [facility] Basophils 0.3 0.0 - 1.0 04/21/2015 [facility] Pathology Reports No Data Provided for [...] 3. No inguinal hernia seen bilaterally. 05/17/2019 [facility] contrast MRA MRI BRAIN WITHOUT CONTRAST, MRA NECK AND [place] WITHOUT CONTRAST INDICATION: Dysarthria COMPARISON: [...] The bilateral vertebral arteries are patent. MRA [place]: The bilateral internal carotid arteries [...] are patent. 3. Unremarkable MRA of the [place]. SL: 04/21/2015 [facility] contrast MRA MRI BRAIN WITHOUT CONTRAST, MRA NECK AND [place] WITHOUT CONTRAST INDICATION: Dysarthria COMPARISON: [...] The bilateral vertebral arteries are patent. MRA [place]: The bilateral internal carotid arteries [...] are patent. 3. Unremarkable MRA of the [place]. SL: 04/21/2015 [facility] contrast MRI MRI BRAIN WITHOUT CONTRAST, MRA NECK AND [place] WITHOUT CONTRAST INDICATION: Dysarthria COMPARISON: [...] The bilateral vertebral arteries are patent. MRA [place]: The bilateral internal carotid arteries [...] are patent. 3. Unremarkable MRA of [place]. SL: 04/21/2015 [facility] Brain Stroke wo contrast CT EXAM: [...] seen. IMPRESSION: Negative CT head. SL: 04/20/2015 [facility] Chest 1view DX EXAMINATION: Chest 1view CLINICAL HISTORY: Focal neurological deficit COMPARISON: No prior similar examinations are currently available for comparison. The hypoinflated lungs are clear of consolidation, pleural effusion, and pneumothorax. The heart size is at the upper limits of normal. Mildly elevated right hemidiaphragm. Mild thoracic spondylosis. SL:17 04/20/2015 [facility] Consultation Notes No Data Provided for This Section Discharge Summaries No Data Provided for This Section History and Physicals No Data Provided for This Section Vital Signs Vital Sign Value Date Comments Source Respitory Rate 16 04/21/2015 [facility] Systolic (mm Hg) 135 04/21/2015 [facility] Diastolic (mm Hg) 97 04/21/2015 [facility] Heart Rate 63 04/21/2015 [facility] Temperature Oral (F) 98 F 04/21/2015 [facility] Respitory Rate 16 04/21/2015 [facility] Heart Rate 78 04/21/2015 [facility] Temperature Oral (F) 98.4 F 04/21/2015 [facility] Systolic (mm Hg) 127 04/21/2015 [facility] Diastolic (mm Hg) 86 04/21/2015 [facility] Temperature Oral (F) 98.1 F 04/21/2015 [facility] Systolic (mm Hg) 130 04/21/2015 [facility] Diastolic (mm Hg) 85 04/21/2015 [facility] Respitory Rate 16 04/21/2015 [facility] Heart Rate 72 04/21/2015 [facility] Height 170.18 cm 04/21/2015 [facility] BMI Calculated 25.9 04/21/2015 [facility] Weight 75 04/21/2015 [facility] Height 182.88 cm 04/21/2015 [facility] Weight 75 04/21/2015 [facility] BMI Calculated 22.42 04/21/2015 [facility] Encounters Location Location Details Encounter Type Encounter Number Reason For Visit Attending Provider ADM Date DC Date Status Source [facility] OBS Observation Patient [id number] Hao Beasley 04/21/2015 04/21/2015 [facility] [place] [facility] [id number] Jr Lawler 05/17/2019 05/18/2019 [facility] [place] [facility] [id number] Jr Lawler 05/18/2019 05/19/2019 [facility] [place] Procedures No Data Provided for This Section [...] pt dips; entered on: 04/21/15 04/21/2015 [facility] [place] Social History TypeResponse Alcohol Current, Type Beer. Frequency: Daily. Smoking Status Former smoker; Type: Cigarettes; Exposure to Tobacco Smoke None; Cigarette Smoking Last 365 Days No; Reg Smoking Cessation Counseling Yes; Stopped at age: 47; Other Tobacco Frequency pt dips; entered on: 04/21/15 04/21/2015 [facility] [place] Social History TypeResponse Alcohol Current, Type Beer. Frequency: Daily. Smoking Status Former smoker; Type: Cigarettes; Stopped at age: 47; Exposure to Tobacco Smoke None; Other Tobacco Frequency pt dips; Cigarette Smoking Last 365 Days No; Reg Smoking Cessation Counseling Yes 04/21/2015 [facility] Family History No Data Provided for This Section Advance Directives No Data Provided for This Section Functional Status No Data Provided for This Section
--- NOTE | 2019-06-03 11:43 | NUR ---
Patient admitted to unit from PACU. Patient is post op cervical fusion. Soft collar in place. Right medial neck incision in place. Clean and dry. NO c/o pain at this time. No numbness noted to arm. lung reddy clear to auscultation. Bowel sounds present x4 but hypoactive. Patient voided at this time. No edema noted. Pedal pulses palpable. Bilateral SCD's in place
[2019-06-03] MEDS: LACTATED RINGER'S 1,000 ML IV SCH ×2 (12:00→20:20)
[2019-06-03] MEDS: CEFAZOLIN SOD 1 GM/NS 50ML 50 ML IV SCH ×2 (15:14→23:54)
--- NOTE | 2019-06-03 16:29 | Operative Report ---
DATE OF PROCEDURE: 06/03/2019 SURGEON: Colby Coe MD PREOPERATIVE DIAGNOSES: C5-6 spondylosis with foraminal stenosis and radiculopathy, M50.122. POSTOPERATIVE DIAGNOSES: C5-6 spondylosis with foraminal stenosis and radiculopathy, M50.122. PROCEDURES: 1. C5-6 anterior cervical diskectomy and microsurgical osteophyte resection and allograft fusion, 67340. 2. Preparation of MTF corticocancellous allograft, 09896. 3. C5-6 anterior cervical plating with Synthes ZPN plate, 62847. ANESTHESIA: General. INDICATIONS: The patient is a 58-year-old man who presents with C5-6 spondylosis and foraminal stenosis due to uncinate hypertrophy symptomatic with intractable left C6 radiculopathy was taken to operating room for C5-6 anterior cervical decompression and fusion. DESCRIPTION OF PROCEDURE: After induction of general anesthesia, the patient was placed on the operating table in supine position. The right side of neck was prepped and draped in sterile fashion. The fluoroscopic C-arm was positioned in cross-table lateral orientation. A transverse incision was created on the right side of neck superimposed on the C5-6 disk space as determined by fluoroscopy. The platysma was divided in line with the incision. A subplatysmal dissection was carried out and avascular plane of dissection was developed medial to the sternocleidomastoid muscle and was followed medial to the carotid sheath to the anterior border of cervical spine. The deep cervical fascia was opened. The esophagus was retracted to the left. The attachments of longus colli muscles to the anterolateral aspects of vertebral bodies of C5 and C6 were divided. The anterior longitudinal ligament was resected. Harrison posts were inserted into C5 and C6. The Harrison distractor was used to distract the disk space. The anterior annulus of the disk was incised with #11 blade and the contents of the disks were thoroughly evacuated with curettes and pituitary rongeurs. The posterior osteophytes were meticulously drilled with a 2 mm cutting bur on a high-speed drill until they were completely removed. The posterior annulus of the disk, herniated disk material, and the posterior longitudinal ligament were resected layer by layer until the dura was fully exposed and decompressed. The medial aspects of the uncinate processes were resected bilaterally with particular attention given to the hypertrophic uncinate process on the left side until the origin of the left C6 nerve root was fully exposed and decompressed. Meticulous hemostasis was secured. The retractor was removed. The platysma was closed with 3-0 Vicryl sutures. Meticulous hemostasis was secured. A piece of MTF corticocancellous allograft measuring 9 mm in thickness was selected and prepared in saline and loaded onto a Synthes ZPN plate. The construct was inserted into the C5-6 disk space under lateral fluoroscopic guidance and tamped in place until the anterior margin of the plate was flushed with the anterior margin of the vertebral bodies. The plate was then screwed to the endplates of C5 and C6 with two pairs of 14 mm screws. All screws were locked and excellent construct was obtained. The wound was copiously irrigated with bacitracin solution. Meticulous hemostasis was secured. Retractor was removed. The platysma was closed with 3-0 Vicryl sutures. The skin was closed with 4-0 Monocryl sutures in subcuticular fashion. Steri-Strips and dressing were applied. The patient was awakened, extubated, and taken to Postanesthesia Care Unit in stable condition. No intraoperative complications were encountered. ESTIMATED BLOOD LOSS: 10 mL. Colby Coe MD PP/RASTA /[id number]
[2019-06-03] MEDS ORDERED: ROCURONIUM BROMIDE 10 MG/ML 5ML VIAL ONE (17:45)
[2019-06-03] MEDS ORDERED: GLYCOPYRROLATE INJ 1MG/ 5 ML SYR ONE (17:45)
[2019-06-03] MEDS ORDERED: LIDOCAINE HCL 2% JELLY 5 ML TUBE ONE (17:45)
[2019-06-03] MEDS ORDERED: SEVOFLURANE INHAL SOLN 250 ML PEN BTL ONE (17:45)
[2019-06-03] MEDS ORDERED: DEXAMETHASONE SOD PHOS INJ 4 MG/ML VIAL ONE (17:45)
[2019-06-03] MEDS ORDERED: NEOSTIGMINE 5 MG/5ML SYR ONE (17:45)
[2019-06-03] MEDS ORDERED: ONDANSETRON HCL INJ 2MG/ML 2ML 2 MG/ML VIAL ONE (17:45)
[2019-06-03] MEDS ORDERED: PROPOFOL IV EMULSION 10 MG/ML 20 ML VIAL ONE (17:45)
[2019-06-03] MEDS ORDERED: LIDOCAINE HCL 2% LOCAL INJ 5 ML SDV VIAL INJ ONE (17:45)
[2019-06-03] MEDS ORDERED: FENTANYL CITRATE/PF 100MCG/2 ML INJ ONE (18:54)
[2019-06-03] MEDS ORDERED: MIDAZOLAM HCL 2 MG/2 ML VIAL ONE (18:54)
[2019-06-03] MEDS ORDERED: SIMVASTATIN 40 MG TAB PO SCH (21:00)
[2019-06-04] VITALS: BP 141/84
[2019-06-04 04:00] VITALS: BP 154/98
[2019-06-04] MEDS: LACTATED RINGER'S 1,000 ML IV SCH (04:40)
--- NOTE | 2019-06-04 06:55 | Diagnostic Imaging Report ---
Cervical Spine, 2 views HISTORY: Pain. COMPARISON: None. FINDINGS: Limited sensitivity for detection of subtle fractures and ligamentous abnormalities. On the lateral view, the cervical spine is visualized from the skull base to superior endplate of C7. The alignment is normal. No acute displaced fracture involving the visualized cervical spine. Anterior cervical fixation hardware at C5-C6 with C5-C6 disc space. Disc Spaces and Uncovertebral Joints: Unremarkable. Facets: The facet joints are unremarkable. IMPRESSION: No acute radiographic osseous abnormality. Mild degenerative changes in the cervical spine. Signed by: Rosalio Benitez DO on 06/04/2019 6:52 AM
[2019-06-04 08:00] VITALS: BP 155/112
[2019-06-04 08:01] VITALS: BP 171/112
--- NOTE | 2019-06-04 08:02 | NUR ---
patient up in bed, not in any distress, denies any pain, call light in reach
[2019-06-04] MEDS: CEFAZOLIN SOD 1 GM/NS 50ML 50 ML IV SCH (08:33)
[2019-06-04] MEDS ORDERED: AMLODIPINE BESYLATE 5 MG TAB PO SCH (09:00)
[2019-06-04] MEDS ORDERED: NORCO 7.5-3251 EACH PO (09:46)
--- NOTE | 2019-06-04 10:25 | NUR ---
patient discharged home, discharge instruction hand out and prescription given patient verbalized understanding. Dressing changed on surgical area, IV canula removed with tip intact, no ss of infiltration. Denies any chestpain or SOB, at bed side taking him home
== END 2019-06-04 10:23 | disposition home or self-care (01) ==
LOC: OR 07:13 → PACU V 10:39 → IMCU 11:47
PROVIDERS: ADMIT Neurological Surgery; ATTEND Neurological Surgery
DX: M50.122 Cervical disc disorder at C5-C6 level with radiculopathy (principal); M47.22 Other spondylosis with radiculopathy, cervical region; F41.9 Anxiety disorder, unspecified; I10 Essential (primary) hypertension; E78.5 Hyperlipidemia, unspecified; R12 Heartburn; Z01.810 Encounter for preprocedural cardiovascular examination; Z01.812 Encounter for preprocedural laboratory examination; Z01.811 Encounter for preprocedural respiratory examination; F17.210 Nicotine dependence, cigarettes, uncomplicated
CPT/HCPCS: 20931; 22551; 22845; 36415; 71046; 72040; 80048; 85025; 85610; 85730; 86850; 86900; 88304; 93005; G0378 ×2; J0131; J0690 ×2; J1100; J2001 ×2; J2250; J2270; J2405; J2704; J3010; J3490; 77003; C1713; C9359

== ENCOUNTER → 2019-06-30 | Outpatient (CLI) | payer MEDICARE ==
[~2019-06-30] MED LIST changes: -BACITRACIN 50,000 UNIT VIAL ONE; -BUPIVACAINE 0.5%/EPI 30 ML SDV INJ ONE; +NORCO 7.5-3251 EACH PO; -THROMBIN FOR SOLN 5,000 UNIT VIAL ONE
--- NOTE | 2019-06-30 07:54 | Diagnostic Imaging Report ---
Exam: Cervical spine AP lateral flexion extension History: Neck pain Comparison: None. Findings: No acute fracture. Anterior fusion of C5-C6 with low profile interbody cage. Hardware intact without complication. No hypermobility on flexion-extension. Multilevel degenerative disc disease throughout the remainder of the cervical spine. Impression: Fusion of C5-C6 without complication. Signed by: Dr. Federico Quintero M.D. on 06/30/2019 7:51 AM
== END ==
LOC: RAD 07:02
PROVIDERS: ATTEND Neurological Surgery
DX: M50.20 Other cervical disc displacement, unspecified cervical region (principal); M43.22 Fusion of spine, cervical region
CPT/HCPCS: 72050

== ENCOUNTER → 2019-12-15 | Outpatient (CLI) | payer MEDICARE ==
--- NOTE | 2019-12-15 09:12 | Diagnostic Imaging Report ---
Exam: Cervical spine series including lateral flexion and extension views Clinical history: Cervical disc herniation Comparison: June 04, 2019 Findings: The patient is status post C5-C6 anterior fusion with postoperative changes. The overall alignment appears anatomical, there is no evidence of hardware loosening. No acute fracture noted. The prevertebral soft tissue is within normal limits. Impression: 1. Status post C5-C6 anterior fusion. Otherwise, unremarkable cervical series. Signed by: Dr. Wally Velasquez MD on 12/15/2019 9:09 AM
== END ==
LOC: RAD 08:25
PROVIDERS: ATTEND Neurological Surgery
DX: M50.20 Other cervical disc displacement, unspecified cervical region (principal); M43.22 Fusion of spine, cervical region
CPT/HCPCS: 72050